=== PATIENT | female | born 1975 | race Caucasian/White ===

== ENCOUNTER → 2016-11-07 | Outpatient (CLI) | payer BC, OTHER ==
--- NOTE | 2016-11-07 14:43 | US ---
November 07, [address] Stewart, Thank you for requesting consultation and a follow up ultrasound for your patient, Mrs. Darshan becerra. As you know, Dara is a 40 year-old 2, para 0010. Her due date is 01/29/17 by LMP and first trimester ultrasound. Her current gestational age based on this dating is 28 weeks 1 days. S he is seen today for a follow up assessment of growth for advanced maternal age. She had reassuring N IPT in this . She reports good movements and denies any current concerns/complication s. ULTRASOUND Number of fetuses: 1 Placental location: Posterior presentation: Cephalic Heart Rate: 139 bpm Cervix: 4.6 cm viewed transabdominally Maximum Vertical Pocket: 8.5 cm Measurements: Biparietal diameter: 73 mm 29 weeks, 3 days Head circumference: 279 mm 30 weeks, 4 days Abdominal circumference: 242 mm 28 weeks, 4 days Femur length: 51 mm 27 weeks, 4 days Humerus length: 47 mm 27 weeks, 5 days Transcerebellar diameter: 35 mm 29 weeks, 3 days Average ultrasound age: 29 weeks, 1 days Estimated weight: 1218 gm weight percentile: 46 % ANATOMY anatomy was previously assessed. Today the following structures were visualized and appeared n ormal: Limited views of the four-chamber heart, left ventricular outflow tract, right ventricular ou tflow tract, SVC/IVC, stomach, bilateral kidneys, bladder, lateral ventricle, given septum pellucidum , cerebellum, views of the profile, and lip and nose views. IMPRESSION: 1. Intrauterine at 28 weeks, 1 days; BALDEV of 01/29/17. 2. growth is appropriate size for dates. 3. anatomy was previously assessed and today's ultrasound continues to provide reassurance of normal appearing anatomy. 4. Normal amniotic fluid volume 5. Advanced maternal age; age 40. Reassuring NIPT. RECOMMENDATIONS: I was pleased to review today's ultrasound with your patient. I reassured her that growth is normal at the 46%ile for this gestational age. The amniotic fluid volume is normal. We performed a review of the anatomy which was limited by gestational age and position, but no overt abnormalit ies were noted. For women age 40 and older, I also recommend antepartum surveillance at 36 weeks unless otherwi se indicated sooner. Age is an independent risk factor for term stillbirth. Thank you for allowing us the opportunity to evaluate your patient. Should you have any further ques tions or concerns please do not hesitate to contact me. Approximately 15 minutes were spent with the patient and 10 minutes were spent in face to face consu ltation. Lindsey Shaver MD Blocking Machine Operator Maternal Medicine Diagnosis Department of Obstetrics & Gynecology [facility]
--- NOTE | 2016-11-07 17:05 | US ---
Obstetric Ultrasound History: 40-year-old with estimated gestational age of 28 weeks 1 day and EDC of January 29, 2017. Comparison: OB ultrasound September 06, 2016. Findings: Number: 1 Presentation: Vertex Placental location: Posterior. No previa. Cervix: Closed, measuring 4.6 cm transabdominally Maximum vertical pocket: 8.5 cm Previously noted fibroids are not visualized. Biometry: Biparietal diameter: 73 mm 29 weeks, 3 days Head circumference: 279 mm 30 weeks, 4 days Abdominal circumference: 242 mm 28 weeks, 4 days Femur length: 51 mm 27 weeks, 4 days Humerus length: 47 mm 27 weeks, 5 days Transcerebellar diameter: 35 mm 29 weeks, 3 days Average ultrasound age: 29 weeks, 1 days EDC based on today's average ultrasound age: January 22, 2017 Estimated weight is 1218 gms +/- 178 gms. The estimated weight percentile is 46% based on previous dating. Detailed anatomic survey was previously performed and is not repeated. heart rate is 139. The four-chamber heart, lateral ventricle, posterior fossa, nose and lips, left-sided stomach, kidn eys, and bladder are visualized and normal. Impression: 1. Living zambrano . Size concordant with dates. 2. Unremarkable anatomy. Please see separate dictation for consultation performed by Lindsey Shaver MD, the same day.
== END ==
LOC: FIMAGING 13:41
PROVIDERS: ATTEND Obstetrics & Gynecology
DX: O09.523 Supervision of elderly multigravida, third trimester (principal); Z3A.28 28 weeks gestation of pregnancy